=== PATIENT | male | born 1945 | race Native Hawaiian/Other Pacific Islander ===

== ENCOUNTER 2016-05-09 11:15 | Outpatient (CLI) | payer OTHER ==
[~2016-05-09 11:15] MED LIST: AMLO5TAB PO; ATOR20TA2 PO; BUDE1AER5 INH; CARV6.25 PO; CIALIS5 MG PO; CLOPIDOGREL75 MG PO; FAMOTIDINE20 MG PO; FERROUS SULF325 M1 PO; FLUTICASONE50 MCG INH; FURO20TA67 PO; FURO40TA93 PO; GLIP5TAB76 PO; KLOR-CON M2020 MEQ PO; LEVO0.0529 PO; LORA0.5T17 PO; LORTAB1 TAB PO; METF500T PO; NEURONTIN 100M100 MG PO; PANT40TA PO; PROAIR HFA IN; RANI150T78 PO; SERT100T PO; SPIRONOLACT25 MG PO; TIOTCAP2 INH; TRAMADOL HCL100 M1 PO; TRICOR48 MG PO; TUDORZA PR400 MG/ACT IN
== END 2016-05-09 23:36 | disposition home or self-care (01) ==
LOC: RAD 11:15
DX: J43.9 Emphysema, unspecified (principal)

== ENCOUNTER 2016-07-03 10:14 | Outpatient (CLI) | payer OTHER | END 2016-07-03 19:21 | disposition home or self-care (01) | LOC: RAD 10:14 | DX: J20.9 Acute bronchitis, unspecified (principal) ==

== ENCOUNTER 2016-09-14 12:09 | Inpatient (IN) | payer OTHER ==
[~2016-09-14] VITALS: Ht 177.8 cm; Wt 88.5 kg
[2016-09-14 13:49] LABS: PLATELET COUNT 161 K/uL (142-355)
[2016-09-14 14:10] LABS: POTASSIUM 4.3 mmol/L (3.6-5.2)
[2016-09-14 16:00] VITALS: BP 147/79; TEMP 97.1
[2016-09-14 16:06] VITALS: BP 132/69; TEMP 97.9; Ht 177.8 cm; Wt 88.5 kg
[2016-09-14] MEDS ORDERED: SERT100T PO (17:25)
[2016-09-14] MEDS ORDERED: AMLO2.5T PO (17:26)
[2016-09-14] MEDS ORDERED: DALIRESP500 MC1 PO (17:26)
[2016-09-14] MEDS ORDERED: LOFIBRA54 MG PO (17:27)
[2016-09-14] MEDS ORDERED: PACERONE200 MG PO (17:27)
[2016-09-14] MEDS ORDERED: CARV3.12 PO (17:28)
[2016-09-14] MEDS ORDERED: ACID CONTROL20 MG PO (17:36)
[2016-09-14] MEDS ORDERED: LIPITOR20 MG PO (17:37)
[2016-09-14] MEDS ORDERED: LORTAB 10-325 M1 TAB PO (17:47)
[2016-09-14] MEDS ORDERED: CLOP75TA2 PO (17:48)
[2016-09-14] MEDS ORDERED: AMIT25TA22 PO (17:48)
[2016-09-14 20:00] VITALS: BP 149/95; TEMP 97
[2016-09-15] VITALS: BP 154/92; TEMP 97.6
[2016-09-15 04:00] VITALS: BP 143/71; TEMP 97.6
[2016-09-15 08:00] VITALS: BP 153/77; TEMP 97.8
[2016-09-15 09:55] LABS: PLATELET COUNT 150 K/uL (142-355)
[2016-09-15 10:48] LABS: POTASSIUM 4.1 mmol/L (3.6-5.2)
[2016-09-15 12:27] VITALS: BP 151/82; TEMP 97.6
[2016-09-15 16:00] VITALS: BP 148/80; TEMP 98
[2016-09-15 20:00] VITALS: BP 141/79; TEMP 97.8
[2016-09-16] VITALS: BP 156/82; TEMP 97.8
[2016-09-16 04:00] VITALS: BP 153/90; TEMP 97.6
[2016-09-16 04:42] LABS: PLATELET COUNT 176 K/uL (142-355)
[2016-09-16 04:52] LABS: POTASSIUM 4.6 mmol/L (3.6-5.2)
[2016-09-16 08:00] VITALS: BP 150/83; TEMP 97.4
[2016-09-16 12:00] VITALS: BP 118/95; TEMP 97.7
[2016-09-16 16:00] VITALS: BP 141/73; TEMP 97.7
[2016-09-16 20:00] VITALS: BP 144/81; TEMP 98.2
[2016-09-17] VITALS: BP 125/65; TEMP 98
[2016-09-17 04:00] VITALS: BP 180/92; TEMP 98
[2016-09-17 04:22] LABS: PLATELET COUNT 135 K/uL (142-355)
[2016-09-17 04:29] LABS: POTASSIUM 4.5 mmol/L (3.6-5.2)
[2016-09-17 08:00] VITALS: BP 131/70; TEMP 97.8
[2016-09-17 12:00] VITALS: BP 133/71; TEMP 97.3
[2016-09-17 16:56] VITALS: BP 125/68; TEMP 98
[2016-09-17 20:00] VITALS: BP 142/72; TEMP 97.3
[2016-09-18] VITALS: BP 152/78; TEMP 97.3
[2016-09-18 04:00] VITALS: BP 144/75; TEMP 97.9
[2016-09-18 05:32] LABS: PLATELET COUNT 145 K/uL (142-355)
[2016-09-18 05:54] LABS: POTASSIUM 5.1 mmol/L (3.6-5.2)
[2016-09-18 08:00] VITALS: BP 148/79; TEMP 97.5
[2016-09-18 12:00] VITALS: BP 133/82; TEMP 97.1
[2016-09-18 16:00] VITALS: BP 127/60; TEMP 97.6
[2016-09-18 20:00] VITALS: BP 126/61; TEMP 97.6
[2016-09-19] VITALS: BP 132/58; TEMP 97.4
[2016-09-19 04:00] VITALS: BP 112/65; TEMP 97.6
[2016-09-19 05:54] LABS: PLATELET COUNT 146 K/uL (142-355)
[2016-09-19 06:19] LABS: POTASSIUM 4.7 mmol/L (3.6-5.2)
[2016-09-19 08:00] VITALS: BP 142/96; TEMP 98.3
[2016-09-19 12:00] VITALS: BP 137/71; TEMP 97.8
== END 2016-09-19 16:20 | disposition other institution (70) | DRG 884 ==
LOC: MED/SURG 12:09
PROVIDERS: ADMIT Family Medicine
DX: F02.81 Dementia in other diseases classified elsewhere, unspecified severity, with behavioral disturbance (principal); N39.0 Urinary tract infection, site not specified; N30.01 Acute cystitis with hematuria; E86.0 Dehydration; R41.82 Altered mental status, unspecified; I10 Essential (primary) hypertension; R53.81 Other malaise; J44.9 Chronic obstructive pulmonary disease, unspecified; M15.8 Other polyosteoarthritis; E11.9 Type 2 diabetes mellitus without complications; R45.1 Restlessness and agitation; R29.6 Repeated falls; M54.5 Low back pain
CPT/HCPCS: 36415; 36591; 36600; 51702; 80053; 80307; 82140; 82607; 82805; 82948; 83735; 83880; 84100; 84443; 85027; 85651; 87040; 93005; 94640; 94664; 94668; 94760; 96360; 96361; 96372; 96374; G0479; J1630; J1885; J1940; J3486